=== PATIENT | female | born 1965 | race Two or more races ===

== ENCOUNTER 2020-05-27 07:36 | Outpatient (CLI) | payer OTHER ==
[~2020-05-27 07:36] MED LIST: PRILOSEC10 MG PO; SYNTHROID88 MCG PO
== END 2020-05-27 07:49 | disposition home or self-care (01) ==
LOC: RX STUDY 07:36
PROVIDERS: ATTEND Internal Medicine Gastroenterology
DX: K21.0 Gastro-esophageal reflux disease with esophagitis (principal)

== ENCOUNTER 2021-03-24 08:51 | Outpatient (CLI) | payer OTHER | END 2021-03-24 08:59 | disposition home or self-care (01) | LOC: RX STUDY 08:51 | PROVIDERS: ATTEND Internal Medicine Gastroenterology | DX: R13.11 Dysphagia, oral phase (principal) ==